=== PATIENT | male | born 1965 | race Two or more races ===

== ENCOUNTER → 2017-10-01 | Outpatient (CLI) | payer OTHER ==
--- NOTE | 2017-10-01 14:53 | Diagnostic Imaging Report ---
PROCEDURE:X-RAY RIGHT SHOULDER, COMPLETE COMPARISON:None. INDICATIONS:RIGHT SHOULDER PAIN FINDINGS: Normal mineralization. No acute fracture or dislocation. Mild degenerative changes of the right glenohumeral joint. Moderate degenerative changes of the right AC joint with joint space narrowing and bony osteophyte formation. A 7 mm dense nodular opacity is noted overlying the right mid lung. CONCLUSION: No acute osseous abnormality. 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 Nodular opacity projecting over the right mid lung zone which may represent a lung nodule or sclerotic rib lesion. Dedicated chest radiograph is recommended for further evaluation. Dictated by: PATY BRITO M.D. on 10/01/2017 at 12:27 Electronically approved by: PATY BRITO M.D. on 10/01/2017 at 12:27
== END ==
LOC: RAD 10:09
PROVIDERS: ATTEND Internal Medicine
DX: M25.511 Pain in right shoulder (principal)